=== PATIENT | male | born 1965 | race Caucasian/White ===

== ENCOUNTER 2017-10-17 21:42 | Emergency (ER) | payer OTHER ==
[2017-10-17 22:00] VITALS: BP 128/97
[2017-10-17] MEDS: Sodium Chloride 0.9% 1,000 ML IV ONE (23:02)
[2017-10-17] MEDS: methylPREDNISolone Sodium Succinate 40 MG/1 ML SDV IVPUSH ONE (23:06)
[2017-10-17] MEDS: Pantoprazole 40 MG Vial IVPUSH ONE (23:06)
[2017-10-17] MEDS: diphenhydrAMINE 50 MG/ML SDV IVPUSH ONE (23:06)
[2017-10-17] MEDS: Ketorolac 30 MG/ML SDV IVPUSH ONE (23:06)
--- NOTE | 2017-10-17 23:13 | EDM.PDOC ---
ED HPI GENERAL MEDICAL PROBLEM - General Chief Complaint: Headache Stated Complaint: headache Time Seen by Provider: 10/17/17 22:35 Source of Information: Reports: Patient, Family History Limitations: Reports: No Limitations - History of Present Illness INITIAL COMMENTS - FREE TEXT/NARRATIVE: Patient comes to ER by private vehicle with complaint of headache that has been present since he bumped his head a week ago on a metal pipe. No LOC. Had some pain in area (left forehead/hairline) immediately. Over the course of a week the pain has gradually increased to include his entire head. No complaining of nausea/emesis/photophobia. No history of previous similar headaches. Has tried ibuprofen with some success but pain has worsened overall today. Says historically Tylenol does not help him. Admits to taking more than the recommended doses of ibuprofen today. History of psoriasis. Has noted that arm rash has appeared to worsen on arms recently and wondered if that was due to ibuprofen. Itchy at times. No respiratory complaints. Patient was seen in clinic today. Had CT which showed enlarged pituitary gland. Plain film of C-spine showed some straightening of normal curve. No other changes on CT. MRI scheduled for next Sunday. Also found to have diabetes and started on Metformin. TSH noted to be low. CBC and Chemistry performed today at hospital lab. Elevated Hgb/Hct noted. Hgb A1C 8.8 Lipid panel did show elevation in levels. No focal neuro complaints such as focal weakness/numbness/visual changes. No other changes noted. Headache Pain Score (Numeric/FACES): 10 - Related Data Allergies Allergy/AdvReac Type Severity Reaction Status Date / Time No Known Allergies Allergy Verified 10/17/17 22:00 Home Meds: Home Meds Ibuprofen 200 mg PO Q4HR 10/17/17 [History] Past Medical History Endocrine/Metabolic History: Reports: Diabetes, Type II - Infectious Disease History Infectious Disease History: Reports: Chicken Pox, Measles - History Comment History Comment: Enlarged pituitary gland Social & Family History - Tobacco Use Smoking Status *Q: Former Smoker Years of Tobacco use: 25 Packs/Tins Daily: 0.3 Used Tobacco, but Quit: Yes Month/Year Tobacco Last Used: 3 - Caffeine Use Caffeine Use: Reports: Coffee - Alcohol Use Alcohol Use History: Yes - Recreational Drug Use Recreational Drug Use: No ED ROS GENERAL - Review of Systems Review Of Systems: See Below Constitutional: Reports: No Symptoms. Denies: Fever, Chills, Night Sweats, Diaphoresis, Decreased Appetite, Weight Loss HEENT: Reports: No Symptoms. Denies: Dental Pain, Hearing Loss, Throat Swelling , Vertigo, Vision Change Respiratory: Reports: No Symptoms Cardiovascular: Reports: No Symptoms Endocrine: Reports: High Glucose GI/Abdominal: Reports: No Symptoms. Denies: Abdominal Pain, Nausea, Vomiting : Reports: No Symptoms Musculoskeletal: Reports: No Symptoms. Denies: Neck Pain, Muscle Stiffness Skin: Reports: Rash (arms/hisotory psoriasis) Neurological: Reports: Headache. Denies: Confusion, Dizziness, Numbness, Paresthesia, Pre-Existing Deficit, Seizure, Syncope, Tingling, Tremors, Trouble Speaking, Difficulty Walking, Weakness, Change in Speech, Gait Disturbance Psychiatric: Reports: No Symptoms Hematologic/Lymphatic: Reports: No Symptoms - Physical Exam Exam: See Below Exam Limited By: No Limitations General Appearance: Alert, WD/WN, No Apparent Distress Eye Exam: Bilateral Eye: EOMI, PERRL Ears: Normal External Exam Nose: Normal Inspection Throat/Mouth: Normal Inspection, Normal Lips, Normal Voice, No Airway Compromise Head Exam: Atraumatic, Normocephalic. No: Scalp Lacerations, Scalp Swelling, Scalp Abrasions, Scalp Ecchymosis, Scalp Hematoma, Scalp Tenderness, Facial Tenderness, Sinus Tenderness Neck: Normal Inspection, Supple, Non-Tender. No: Lymphadenopathy (L), Lymphadenopathy (R) Respiratory/Chest: No Respiratory Distress, Lungs Clear, Normal Breath Sounds, No Accessory Muscle Use Cardiovascular: Regular Rate, Rhythm, No Murmur GI/Abdominal: Soft, Non-Tender (Male) Exam: Deferred Rectal (Males) Exam: Deferred Neuro Exam (Abbreviated): Alert, Oriented, CN II-XII Intact, Normal Cognition, Normal Gait, Normal Reflexes, No Motor/Sensory Deficits DTR: 2+: Tricep (R), Tricep (L), Patella (R), Patella (L) Back Exam: Normal Inspection. No: CVA Tenderness (L), CVA Tenderness (R) Extremities: Normal Inspection, Normal Range of Motion, Non-Tender, No Pedal Edema, Normal Capillary Refill Psychiatric: Normal Affect Skin Exam: Warm, Dry, Other (macular papular rash/scattered, noted on both upper /lower arms. Mild excoriation. No urticaria. No drainage/vesicles/pustules/ warmth. Confluent patches of dryness noted on both elbows and lateral portion of arms consistent with psoriasis. ) Course - Vital Signs Last Recorded V/S: Last Vital Signs Temp 36.7 C 10/17/17 21:43 Pulse 97 10/17/17 21:43 Resp 20 10/17/17 21:43 BP 128/97 H 10/17/17 21:43 Pulse Ox 99 10/17/17 21:43 - Orders/Labs/Meds Meds: Medications Discontinued Medications Generic Name Dose Route Start Last Admin Trade Name Freq PRN Reason Stop Dose Admin Diphenhydramine HCl 50 mg 10/17/17 23:01 10/17/17 23:06 Benadryl IVPUSH 10/17/17 23:02 50 mg ONETIME ONE Administration Fentanyl 100 mcg 10/17/17 23:40 10/18/17 00:53 Sublimaze IVPUSH 100 mcg ONETIME PRN Administration Pain (severe 7-10) Sodium Chloride 1,000 mls @ 999 mls/hr 10/17/17 22:57 10/17/17 23:02 Normal Saline IV 10/17/17 23:57 999 mls/hr .BOLUS ONE Administration Sodium Chloride 1,000 mls @ 999 mls/hr 10/17/17 23:59 Normal Saline IV 10/18/17 00:59 .BOLUS ONE Magnesium Sulfate/Dextrose 100 mls @ 100 mls/hr 10/17/17 23:08 10/17/17 23:49 Magnesium 1 Gm In D5w 100 Ml IV 10/18/17 00:07 100 mls/hr ONETIME ONE Administration Ketorolac Tromethamine 30 mg 10/17/17 23:01 10/17/17 23:06 Toradol IVPUSH 10/17/17 23:02 30 mg ONETIME ONE Administration Methylprednisolone Sodium Succinate 40 mg 10/17/17 22:58 10/17/17 23:06 Solu-Medrol IVPUSH 10/17/17 22:59 40 mg ONETIME ONE Administration Pantoprazole Sodium 40 mg 10/17/17 23:01 10/17/17 23:06 Protonix Iv IVPUSH 10/17/17 23:02 40 mg ONETIME ONE Administration Sumatriptan Succinate 50 mg 10/17/17 23:06 10/18/17 00:00 Imitrex PO 10/17/17 23:07 50 mg ONETIME ONE Administration - Re-Assessments/Exams Free Text/Narrative Re-Assessment/Exam: 10/17/17 23:24 Discussed possibility of having patient obtain an MRI tonight in [place] given the persistent symptoms. Patient and would like to focus on pain relief for now. They did say that they would consider Kim if pain cannot be managed, or if pain returns/increases in intensity/is accompanied by neuro changes if symptoms improve initially after treatment here and then return. Noted that earlier labs today did show suspected dehydration, assuming that the elevated Hgb/Hct is not normal for the patient. Plan for IV fluid bolus ordered. Headache may very well represent a post-concussive headache. Again, had a normal CT except for incidentally noted enlarged pituitary gland--no bleeds noted. Combination of Toradol, Magnesium, Imitrex, and Benadryl given. May consider Fentanyl if pain does not improve with the above interventions. If pain does end up improving tonight, patient encouraged to follow up as needed over the next few days either in clinic of in ER if any problems or worsening headache develop. Rash on arms does not appear consistent with hives. It does have an appearance consistent with dermatitis/contact dermatitis. Cannot rule out possibility of NSAID component triggering rash. Discussed with patient that he may have to completely discontinue NSAIDS and see if rash disappears. It may also represent a worsening of patient's chronic psoriasis. Recommend continuing to observe this for change. Pain improved at time of discharge although headache not completely resolved. Patient to follow up as above. Departure - Departure Time of Disposition: 01:30 Disposition: Home, Self-Care 01 Condition: Good Clinical Impression: Post-concussion headache, Enlarged pituitary gland Diabetes mellitus Qualifiers: Diabetes mellitus type: type 2 Diabetes mellitus skilled nursing insulin use: without skilled nursing use Diabetes mellitus complication status: with unspecified complications Qualified Code(s): E11.8 - Type 2 diabetes mellitus with unspecified complications - Discharge Information Instructions: Post-Concussion Syndrome Referrals: Patricio Fuentes NP [Primary Care Provider] - Forms: ED Department Discharge Additional Instructions: Follow up with clinic as scheduled in regards to the headache, MRI, as well as diabetes. Follow up in ER or clinic acutely if you notice sudden worsening problems, such as worsening headache or neurological changes/weakness. Keep hydrated. Drink plenty of water. No more Aleve/ibuprofen/NSAIDS for 8 hours. Do NOT exceed recommended doses on bottles. You put your kidneys and stomach at risk if you take more than the recommended doses. Dietary changes as recommended. Close following of blood sugars also recommended for better control of diabetes. See if the rash on the arm goes away if you do not take NSAID meds. If true hives are noted, then it is recommended that you discontinue taking that class of medication for now.
[2017-10-17] MEDS ORDERED: Sodium Chloride 0.9% 1,000 ML IV ONE (23:59)
[2017-10-18] MEDS: SUMAtriptan 50 MG Tab PO ONE
[2017-10-18] MEDS: fentaNYL 100 MCG/2 ML SDV IVPUSH PRN (00:53)
== END 2017-10-18 01:08 | disposition home or self-care (01) ==
LOC: LL.ED 21:42
DX: R51 Headache (principal); F07.81 Postconcussional syndrome; E11.8 Type 2 diabetes mellitus with unspecified complications; E23.6 Other disorders of pituitary gland; Z87.891 Personal history of nicotine dependence
CPT/HCPCS: 96365; 96375; 99284; A9270-GY; C9113; J1200; J1885; J2920; J3010; J3475; J7030

== ENCOUNTER 2018-07-18 11:42 | Day surgery (SDC) | payer OTHER ==
[~2018-07-18 11:42] MED LIST: Midazolam 1 MG/ML 2 ML SDV ONE; Propofol 200 MG/20 ML SDV ONE; Sodium Chloride 0.9% 10 ML Syringe FLUSH PRN
[2018-07-18] MEDS ORDERED: Lactated Ringers 1,000 ML IV SCH (12:30)
[2018-07-18] MEDS ORDERED: Propofol 200 MG/20 ML SDV ONE (13:24)
[2018-07-18] MEDS ORDERED: Midazolam 1 MG/ML 2 ML SDV ONE (13:24)
--- NOTE | 2018-07-18 13:25 | PCM.HPR ---
H & P Addendum review - H & P Addendum Review Date of Original H & P: 07/03/18 Date Reviewed: 07/18/18 Time Reviewed: 13:24 Patient was Examined: No Changes
--- NOTE | 2018-07-18 13:49 | PCM.OPNOTE ---
- General Post-Op/Procedure Note Date of Surgery/Procedure: 07/18/18 Operative Procedure(s): Colonoscopy Findings: Normal Pre Op Diagnosis: Screening Post-Op Diagnosis: Same Anesthesia Technique: MARGIE Primary Surgeon: Tomas Marshall Anesthesia Provider: Marjan Kessler Complications: None Condition: Good
--- NOTE | 2018-07-19 08:55 | OR ---
Date of Procedure: 07/18/2018 PREOPERATIVE DIAGNOSIS: Colon screening. POSTOPERATIVE DIAGNOSIS: Sigmoid diverticulosis. PROCEDURE: Colonoscopy. ANESTHESIA: IV sedation. PROCEDURE IN DETAIL: The patient was brought to the procedure room where he was placed on his left side and IV sedation administered. Digital rectal exam was performed, which was normal. Colonoscope was inserted and advanced to the level of the cecum without difficulty. Cecal position was confirmed by identifying the appendiceal lumen and the ileocecal valve. Prep was good and surfaces were well visualized. Upon withdrawing the scope, the ascending, transverse, and descending colon were normal in appearance. Sigmoid colon had a few diverticula present. Rectum was normal and retroflexion was normal. Air was removed and the scope withdrawn. The patient tolerated the procedure well and returned to recovery in stable condition. Recommend routine colon screening again in 10 years. ADONAY CUEVAS MD /[id number]
== END 2018-07-18 14:38 | disposition home or self-care (01) ==
LOC: LL.SDS 11:42
PROVIDERS: ATTEND Surgery
DX: Z12.11 Encounter for screening for malignant neoplasm of colon (principal); K57.30 Diverticulosis of large intestine without perforation or abscess without bleeding; E11.9 Type 2 diabetes mellitus without complications; R73.9 Hyperglycemia, unspecified; E78.5 Hyperlipidemia, unspecified; Z88.6 Allergy status to analgesic agent; Z79.84 Long term (current) use of oral hypoglycemic drugs; Z79.899 Other long term (current) drug therapy
CPT/HCPCS: J2250; J2704; J7120

== ENCOUNTER 2021-03-05 13:54 | Emergency (ER) | payer OTHER ==
--- NOTE | 2021-03-05 16:14 | EDM.PDOC ---
ED HPI GENERAL MEDICAL PROBLEM - General Chief Complaint: Respiratory Problem Stated Complaint: Cough Time Seen by Provider: 03/05/21 14:20 Source of Information: Reports: Patient History Limitations: Reports: No Limitations - History of Present Illness INITIAL COMMENTS - FREE TEXT/NARRATIVE: PtJovany presents to ER with a 10-14 day history of cough, chest congestion, loss of sense of taste and smell. He states that he thinks he has covid 19. Denies any fever or chills. 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 He states that he had his window of his tractor open and thinks the dust exacerbated his cough. He denies any shortness of breath. No lightheadedness. Denies any palpitations. No nausea, vomiting, or diarrhea. He denies any significant past medical history, such as heart disease, asthma, COPD, renal disease, obesity, HTN, or diabetes. He is not currently on any medications. Onset: Today Onset Date: 03/05/21 - Related Data Allergies Allergy/AdvReac Type Severity Reaction Status Date / Time ibuprofen Allergy Other Verified 03/05/21 14:12 Home Meds: Home Meds . [No Known Home Meds] 03/05/21 [History] Past Medical History HEENT History: Reports: Impaired Vision Other HEENT History: wears glasses Cardiovascular History: Reports: High Cholesterol Respiratory History: Reports: None Gastrointestinal History: Reports: None Genitourinary History: Reports: None Musculoskeletal History: Reports: Other (See Below) Other Musculoskeletal History: acute neck pain Neurological History: Reports: Other (See Below) Other Neuro History: new daily persistant headaches, concussion syndrome Psychiatric History: Reports: None Endocrine/Metabolic History: Reports: Diabetes, Type II, Other (See Below) Other Endocrine/Metabolic History: enlarged pituitary gland, abnormal TSH Hematologic History: Reports: None Immunologic History: Reports: None Oncologic (Cancer) History: Reports: None Dermatologic History: Reports: Psoriasis - Infectious Disease History Infectious Disease History: Reports: Chicken Pox, Measles - History Comment History Comment: Enlarged pituitary gland Social & Family History - Tobacco Use Tobacco Use Status *Q: Unknown Ever Used Tobacco - Caffeine Use Caffeine Use: Reports: Coffee ED ROS GENERAL - Review of Systems Review Of Systems: See Below Constitutional: Reports: Fatigue HEENT: Reports: No Symptoms Respiratory: Reports: Cough Cardiovascular: Reports: No Symptoms Endocrine: Reports: No Symptoms GI/Abdominal: Reports: No Symptoms : Reports: No Symptoms Musculoskeletal: Reports: No Symptoms Skin: Reports: No Symptoms Neurological: Reports: No Symptoms Psychiatric: Reports: No Symptoms Hematologic/Lymphatic: Reports: No Symptoms Immunologic: Reports: No Symptoms ED EXAM, GENERAL - Physical Exam Exam: See Below Exam Limited By: No Limitations General Appearance: Alert, WD/WN, No Apparent Distress Throat/Mouth: Normal Lips, Normal Teeth, Normal Oropharynx, Normal Voice, No Airway Compromise Head: Atraumatic, Normocephalic Neck: Normal Inspection, Supple, Non-Tender, Full Range of Motion Respiratory/Chest: No Respiratory Distress, Lungs Clear, Normal Breath Sounds, No Accessory Muscle Use, Chest Non-Tender Cardiovascular: Normal Peripheral Pulses, Regular Rate, Rhythm, No Edema, No JVD, No Murmur Peripheral Pulses: 4+: Radial (L) GI/Abdominal: Soft, Non-Tender, No Distention, No Mass (Male) Exam: Deferred Rectal (Males) Exam: Deferred Back Exam: Normal Inspection, Full Range of Motion Extremities: Normal Inspection, Normal Range of Motion, Non-Tender, No Pedal Edema, Normal Capillary Refill Neurological: Alert, Oriented, CN II-XII Intact, Normal Cognition, Normal Gait, Normal Reflexes, No Motor/Sensory Deficits Psychiatric: Normal Affect, Normal Mood Skin Exam: Warm, Dry, Intact, Normal Color, No Rash Course - Vital Signs Last Recorded V/S: Last Vital Signs Temp 37.1 C 03/05/21 14:11 Pulse 107 H 03/05/21 14:11 Resp 22 H 03/05/21 14:11 BP 141/93 H 03/05/21 14:11 Pulse Ox 100 03/05/21 14:11 - Orders/Labs/Meds Orders: Active Orders 24 hr Category Date Time Status Chest 1V Frontal [CR] Stat Exams 03/05/21 14:15 Taken Labs: Laboratory Tests 03/05/21 Range/Units 14:30 SARS-CoV-2 RNA ([facility]) Positive H (NEGATIVE) Departure - Departure Time of Disposition: 16:16 Disposition: Home, Self-Care 01 Clinical Impression: 2019 novel coronavirus disease (COVID-19) - Discharge Information Instructions: Symptoms of Coronavirus - CDC (08/16/2020), Codeine; Promethazine oral solution Referrals: PCP,None [Primary Care Provider] - Forms: ED Department Discharge Additional Instructions: Home to rest. Drink plenty of fluids Ibuprofen 200mg 3 tabs every 6 hours for fever/discomfort Phenergan with codeine 1 tsp every 6 hours as needed for cough return to ER if you have any trouble breathing, lightheadedness, or call if you have questions. Sepsis Event Note (ED) - Evaluation Sepsis Screening Result: Possible Sepsis Risk - Focused Exam Vital Signs: Vital Signs Temp Pulse Resp BP Pulse Ox 03/05/21 14:11 37.1 C 107 H 22 H 141/93 H 100 - Problem List Review Problem List Initiated/Reviewed/Updated: Yes - My Orders Last 24 Hours: My Active Orders 03/05/21 14:15 Chest 1V Frontal [CR] Stat - Assessment/Plan Last 24 Hours: My Active Orders 03/05/21 14:15 Chest 1V Frontal [CR] Stat Plan: discussed findings with patient. Decision was made to forgo treatment with Regeneron at this point. He has had symptoms for at least 10 days. He is quite healthy and has not significant past medical history. The only criteria for monoclonal antibody use would be BMI, but this is a very lean, muscular patient and is in no way overweight. He was started on a short course of phenergan with codeine for cough. Return to ER if increased shortness of breath, lightheadedness, syncope.
== END 2021-03-05 16:15 | disposition home or self-care (01) ==
LOC: LL.ED 13:54
DX: U07.1 COVID-19 (principal); E11.9 Type 2 diabetes mellitus without complications; Z88.6 Allergy status to analgesic agent
CPT/HCPCS: 71045; 99283; 99283-25; U0002